=== PATIENT | female | born 1985 | race Caucasian/White ===

== ENCOUNTER 2019-06-19 22:11 | Emergency (ER) | payer SELFPAY ==
[2019-06-19] MEDS ORDERED: CYCLOBENZAPRINE HCL 10 MG TABLET PO ONE (23:49)
[2019-06-19] MEDS ORDERED: KETOROLAC TROMETHAMINE 60 MG/2 ML SDV IM ONE (23:49)
--- NOTE | 2019-06-19 23:50 | ER Document Report ---
ED Medical Screen (RME) - General Chief Complaint: Neck Problem Stated Complaint: NECK PAIN Time Seen by Provider: 06/19/19 23:48 Primary Care Provider: RALEIGH RUTHERFORD MD [Primary Care Provider] - Follow up as needed Notes: 33-year-old female presents with upper back pain/neck pain for 1 month. Patient denies any fever. Exam consistent with muscle spasm/muscle strain. I have greeted and performed a rapid initial assessment of this patient. A comprehensive ED assessment and evaluation of the patient, analysis of test results and completion of the medical decision making process with be conducted by additional ED providers. TRAVEL OUTSIDE OF THE [place] IN LAST 30 DAYS: No - Related Data Allergies/Adverse Reactions: No Known Allergies Allergy (Verified 05/06/16 13:35) Past Medical History - Social History Frequency of alcohol use: None Drug Abuse: None Pulmonary Medical History: Reports: Hx Pneumonia Neurological Medical History: Reports: Hx Migraine Past Surgical History: Reports: Hx Tubal Ligation - Immunizations Hx Diphtheria, Pertussis, Tetanus Vaccination: Yes Physical Exam - Vital signs Vitals: Temp Pulse Resp BP Pulse Ox 98.2 F 93 18 128/79 H 100 06/19/19 22:40 06/19/19 22:40 06/19/19 22:40 06/19/19 22:40 06/19/19 22:40 Course - Vital Signs Vital signs: Temp Pulse Resp BP Pulse Ox 98.2 F 93 18 128/79 H 100 06/19/19 22:40 06/19/19 22:40 06/19/19 22:40 06/19/19 22:40 06/19/19 22:40 Doctor's Discharge - Discharge Referrals: RALEIGH RUTHERFORD MD [Primary Care Provider] - Follow up as needed
[2019-06-20 02:01] VITALS: BP 127/90
== END 2019-06-20 02:50 | disposition left against medical advice (07) ==
LOC: ER 22:11
DX: M54.2 Cervicalgia (principal); M54.6 Pain in thoracic spine; Z98.51 Tubal ligation status
CPT/HCPCS: 99281; J1885